=== PATIENT | male | born 1980 | race Two or more races ===

== ENCOUNTER 2025-02-14 23:29 | Inpatient (IN) | payer OTHER ==
[~2025-02-14] VITALS: Ht 180.3 cm; Wt 103.0 kg
[2025-02-15] MEDS ORDERED: PROMETHAZINE HCL 50 MG/ML AMPUL IM STA (00:47)
[2025-02-15] MEDS ORDERED: MORPHINE SULFATE 4 MG/ML VIAL IV STA (00:47)
[2025-02-15] MEDS ORDERED: PROMETHAZINE HCL 50 MG/ML AMPUL IM ONE (00:53)
[2025-02-15] MEDS ORDERED: BARIUM SULFATE 450 ML ORAL.SUSP PO ONE (00:54)
[2025-02-15] MEDS ORDERED: 0.9 % SODIUM CHLORIDE 1,000 ML IV ONE (01:00)
[2025-02-15 01:44] LABS: BASO % 0.2 % (0.1-1.2); EOS # 0.12 (0.04-0.54); EOS % 1.0 % (0.7-7.0); LYMPH # 1.07 (1.18-3.74); LYMPH % 8.9 % (19.3-53.1); MEAN PLATELET VOLUME 10.30 fl (9.4-12.4); MONO # 0.83 (0.24-0.82); MONO % 6.9 % (4.7-12.5); NEUT # 9.91 (1.56-6.13); NEUT % 82.6 % (34.0-71.1); RED CELL DISTRIBUTION WIDTH 12.4 % (11.6-14.4)
[2025-02-15 01:53] LABS: INR 1.3
[2025-02-15 01:56] LABS: ALT/SGPT 817.0 U/L (12-78); AST/SGOT 423.0 U/L (15-37); BILIRUBIN TOTAL 3.17 mg/dL (0.3-1.2); BUN CREA RATIO 10.0 (7.0-25.0); CREATININE SERUM 1.17 mg/dL (0.70-1.30); GFR 68.04; GLOBULINA 4.5 G/DL (2.4-3.5); GLUCOSE FASTING 192.0 mg/dL (65-100); OSMOLALITY SERUM 288.0 MOSM/KG (275-295)
[2025-02-15 05:47] LABS: URINE APPEARANCE Clear; URINE BILIRRUBIN Moderate (NEGATIVE); URINE BLOOD Negative; URINE COLOR Dark Yellow; URINE GLUCOSE Negative (NEGATIVE); URINE KETONE Trace (NEGATIVE); URINE LEUKOCYTE Trace; URINE NITRATE Negative; URINE PROTEIN Trace (NEGATIVE); URINE UROBILINOGEN 2.0 E.U./dl
[2025-02-15 05:51] LABS: URINE BACTERIA 5.9 uL (0.0-1933); URINE EPITHELIAL CELLS 4.4 uL (0.0-38.8); URINE RBC 6.3 uL (0.0-20.8)
[2025-02-15 05:59] LABS: URINE CAST 0.14 uL (0.0-1.40); URINE WBC 1.6 uL (0.0-23.2)
[2025-02-15] MEDS ORDERED: KETOROLAC TROMETHAMINE 30 MG VIAL IV STA (06:14)
[2025-02-15] MEDS ORDERED: KETOROLAC TROMETHAMINE 30 MG VIAL ONE (06:18)
[2025-02-15] MEDS ORDERED: MEPERIDINE HCL/PF 50 MG/ML VIAL IV PRN (08:30)
[2025-02-15] MEDS ORDERED: 0.9 % SODIUM CHLORIDE 1,000 ML IV SCH ×2 (08:30)
[2025-02-15] MEDS ORDERED: ONDANSETRON HCL 4 MG in DEXTROSE 5 % IN WATER 50 ML IV PRN (08:45)
[2025-02-15] MEDS ORDERED: ACETAMINOPHEN 500 MG GEL..CAP PO PRN (08:45)
[2025-02-15] MEDS ORDERED: PANTOPRAZOLE SODIUM 40 MG/VIAL VIAL IV PUSH SCH (09:00)
[2025-02-15] MEDS ORDERED: GABAPENTIN 600 MG TABLET PO SCH (09:00)
[2025-02-15 10:46] LABS: ABG PH 7.397 (7.35-7.45); ABG PO2 86.6 mmHg (80-100); BICARBONATE 25.1 mmol/l (23-25)
[2025-02-15 10:47] LABS: o2 21 %
[2025-02-15] MEDS ORDERED: MORPHINE SULFATE 4 MG/ML CARTRIDGE IV PRN (13:15)
[2025-02-15 17:35] VITALS: BP 138/85
[2025-02-15] MEDS ORDERED: ORPHENADRINE CITRATE 30 MG/ML AMPUL IM SCH (21:00)
[2025-02-16 01:27] VITALS: BP 117/80; O2SAT 95
[2025-02-16 06:44] LABS: BASO % 0.2 % (0.1-1.2); EOS # 0.16 (0.04-0.54); EOS % 1.8 % (0.7-7.0); LYMPH # 1.32 (1.18-3.74); LYMPH % 14.5 % (19.3-53.1); MEAN PLATELET VOLUME 10.30 fl (9.4-12.4); MONO # 0.63 (0.24-0.82); MONO % 6.9 % (4.7-12.5); NEUT # 6.97 (1.56-6.13); NEUT % 76.3 % (34.0-71.1); RED CELL DISTRIBUTION WIDTH 12.6 % (11.6-14.4)
[2025-02-16 06:54] LABS: ERYTHROCYTE SEDIMENTATION RATE 94 mm/hr (0-15)
[2025-02-16 07:07] LABS: INR 1.32
[2025-02-16 07:33] LABS: ALT/SGPT 554.0 U/L (12-78); AST/SGOT 254.0 U/L (15-37); BILIRUBIN TOTAL 5.3 mg/dL (0.3-1.2); BILIRUBIN,CONJUGATED 4.08 mg/dL (0.0-0.2); BUN CREA RATIO 16.0 (7.0-25.0); CHOL HDL RATIO 5.7 (0-5.0); CREATININE SERUM 0.8 mg/dL (0.70-1.30); GFR 105.5; GLOBULINA 3.2 G/DL (2.4-3.5); GLUCOSE FASTING 95.0 mg/dL (65-100); HDL 20.0 mg/dl (40-60); LDL 77.0 mg/dl (0-130); OSMOLALITY SERUM 281.0 MOSM/KG (275-295); PROSTATIC SPECIFIC ANTIGEN 0.466 NG/ML (0.010-4.00); T4 FREE 1.0 NG/ML (0.76-1.46); TSH 0.676 uIU/mL (0.358-3.74); VLDL 17.0 (0-39)
[2025-02-16 08:42] VITALS: BP 111/74; O2SAT 94
[2025-02-16 17:49] VITALS: BP 105/67
[2025-02-16] MEDS ORDERED: ERTAPENEM SODIUM 1,000 MG VIAL IV STA (19:43)
[2025-02-16] MEDS ORDERED: ERTAPENEM SODIUM 1,000 MG VIAL ONE (20:16)
[2025-02-17 02:44] VITALS: BP 119/79; O2SAT 95
[2025-02-17 07:50] LABS: ALT/SGPT 401.0 U/L (12-78); AST/SGOT 121.0 U/L (15-37); BILIRUBIN TOTAL 2.35 mg/dL (0.3-1.2); BILIRUBIN,CONJUGATED 1.32 mg/dL (0.0-0.2)
[2025-02-17 09:26] VITALS: BP 123/77; O2SAT 97
[2025-02-17] MEDS ORDERED: ONDANSETRON HCL 2 MG/ML VIAL ONE (15:48)
[2025-02-17 16:41] VITALS: BP 127/80; O2SAT 93
[2025-02-17] MEDS ORDERED: MEROPENEM 500 MG/VIAL VIAL IV SCH (18:00)
[2025-02-17] MEDS ORDERED: ERTAPENEM SODIUM 1,000 MG VIAL IV SCH (21:00)
[2025-02-18 02:12] VITALS: BP 111/72
[2025-02-18 05:18] LABS: COVID-19 AG NEGATIVE (NEGATIVE)
[2025-02-18 09:09] VITALS: BP 123/75; O2SAT 96
[2025-02-18] MEDS ORDERED: MORPHINE SULFATE 4 MG/ML CARTRIDGE IV PRN (12:00)
[2025-02-18 18:40] VITALS: BP 128/84; O2SAT 97
[2025-02-19 02:37] VITALS: BP 109/71; O2SAT 96
[2025-02-19 06:42] LABS: INR 1.03
[2025-02-19 06:49] LABS: BASO % 1.0 % (0.1-1.2); EOS # 0.34 (0.04-0.54); EOS % 5.9 % (0.7-7.0); LYMPH # 0.98 (1.18-3.74); LYMPH % 16.9 % (19.3-53.1); MEAN PLATELET VOLUME 11.50 fl (9.4-12.4); MONO # 0.49 (0.24-0.82); MONO % 8.4 % (4.7-12.5); NEUT # 3.91 (1.56-6.13); NEUT % 67.5 % (34.0-71.1); RED CELL DISTRIBUTION WIDTH 13.2 % (11.6-14.4)
[2025-02-19 07:22] LABS: ALT/SGPT 29 U/L (12-78); AST/SGOT 12 U/L (15-37); BILIRUBIN TOTAL 0.49 mg/dL (0.3-1.2); BILIRUBIN,CONJUGATED < 0.10 mg/dL (0.0-0.2); BUN CREA RATIO 16 (7.0-25.0); CREATININE SERUM 0.76 mg/dL (0.70-1.30); GFR 111.94; GLOBULINA 3.4 G/DL (2.4-3.5); GLUCOSE FASTING 152 mg/dL (65-100); OSMOLALITY SERUM 288 MOSM/KG (275-295)
[2025-02-19] MEDS ORDERED: GLUCAGON 1 MG VIAL ONE (08:29)
[2025-02-19] MEDS ORDERED: IOVERSOL 320 MG/ML - 50 ML VIAL IV ONE (08:29)
[2025-02-19 08:48] VITALS: BP 128/86; O2SAT 98
[2025-02-19] MEDS ORDERED: SUGAMMADEX SODIUM 200 MG/2 ML VIAL IV ONE (11:08)
[2025-02-19 14:57] LABS: ABG PH 7.392 (7.35-7.45); ABG PO2 66.2 mmHg (80-100); BICARBONATE 28.2 mmol/l (23-25)
[2025-02-19 15:03] LABS: o2 48 %
[2025-02-20] MEDS ORDERED: MORPHINE SULFATE 4 MG/ML VIAL IV ONE (03:00)
[2025-02-20 06:10] LABS: ABG PH 7.452 (7.35-7.45); ABG PO2 224.2 mmHg (80-100); BICARBONATE 31.3 mmol/l (23-25)
[2025-02-20 06:42] LABS: o2 50 %
[2025-02-20 09:16] VITALS: BP 110/70; O2SAT 99
[2025-02-20 17:15] VITALS: BP 140/70; O2SAT 98
[2025-02-21 01:58] VITALS: BP 130/80; O2SAT 97
[2025-02-21 08:30] VITALS: BP 112/74; O2SAT 98
[2025-02-21] MEDS ORDERED: NEURONTIN600 MG PO (14:06)
[2025-02-21] MEDS ORDERED: DEXILANT60 MG PO (14:06)
== END 2025-02-21 14:42 | disposition home or self-care (01) | DRG 439 ==
LOC: ER 02-15 00:14 → MEDJ 02-15 09:40 → SEC-K 02-15 09:40 → MEDI 02-15 13:06 → MEDJ 02-15 13:19
PROVIDERS: Anesthesiology; General Practice; Internal Medicine; ADMIT Internal Medicine; ATTEND Internal Medicine
PROC: BW21ZZZ Computerized Tomography (CT Scan) of Abdomen and Pelvis (ICD-10-PCS; principal; 2025-02-15)
PROC: BW40ZZZ Ultrasonography of Abdomen (ICD-10-PCS; 2025-02-15)
PROC: BF37ZZZ Magnetic Resonance Imaging (MRI) of Pancreas (ICD-10-PCS; 2025-02-16)
DX: K85.10 Biliary acute pancreatitis without necrosis or infection (principal); K80.42 Calculus of bile duct with acute cholecystitis without obstruction

== ENCOUNTER 2025-05-04 06:00 | Day surgery (SDC) | payer OTHER ==
[2025-05-01 12:31] VITALS: BP 113/73
[~2025-05-04] VITALS: Ht 180.3 cm; Wt 99.8 kg
[~2025-05-04 06:00] MED LIST: DEXILANT60 MG PO; NEURONTIN600 MG PO
[2025-05-04] MEDS ORDERED: LIDOCAINE HCL 1%/EPINEPHRINE 20ML VIAL IJ ONE (09:15)
[2025-05-04] MEDS ORDERED: ISOPROPYL ALCOHOL 30 ML OUNCE TOP ONE (09:15)
[2025-05-04] MEDS ORDERED: CEFAZOLIN SODIUM 1,000 MG VIAL IV ONE (09:15)
[2025-05-04] MEDS ORDERED: BUPIVACAINE HCL 30 ML VIAL IJ ONE (09:15)
[2025-05-04] MEDS ORDERED: SUGAMMADEX SODIUM 200 MG/2 ML VIAL IV ONE (10:00)
[2025-05-04] MEDS ORDERED: ONDANSETRON HCL 2 MG/ML VIAL IV ONE (11:55)
== END 2025-05-04 13:20 | disposition home or self-care (01) ==
LOC: CIR.AMB 06:00
PROVIDERS: ATTEND Surgery
DX: K80.10 Calculus of gallbladder with chronic cholecystitis without obstruction (principal)